=== PATIENT | male | born 1965 | race Caucasian/White ===

== ENCOUNTER 2016-08-21 19:06 | Emergency (ER) | payer OTHER ==
[2016-08-21] MEDS ORDERED: DIPH,PERTUSS(ACELL),TET VAC/PF 0.5 ML DISP.SYRIN IM ONE (19:16)
--- NOTE | 2016-08-21 19:23 | ED Physician Documentation ---
General Adult - HISTORIAN Historian: patient - HPI Stated Complaint: lac right leg Chief Complaint: Laceration/Recheck/Suture Additional Information: Mowing grass and something cut right leg. Unknown object. Last tetanus unknown. Stopped by [facility] and told to drive/come to ER. Onset: minutes (1800) - ROS CONST: no problems - PAST HX Past History: hypertension, other (IDDM, HLD, ) Allergies/Adverse Reactions: Allergies Allergy/AdvReac Type Severity Reaction Status Date / Time No Allergy Information Allergy Unverified 08/21/16 19:42 Available - SOCIAL HX Smoking History: cigarettes - FAMILY HX Family History: No - VITAL SIGNS Vital Signs: Vital Signs Temp Pulse Resp BP Pulse Ox 80 18 192/91 96 08/21/16 19:09 08/21/16 19:09 08/21/16 19:09 08/21/16 19:09 - REVIEWED ASSESSMENTS Nursing Assessment Reviewed: Yes Vitals Reviewed: Yes Progress - Progress Progress: Right lower leg immediately re-dressed with pressure dressing and elevated on pillow. 3 views of the right lower extremity Clinical history: Concern for foreign body Findings: No fracture dislocation is identified. No concerning radiopaque foreign bodies are identified. Small subcutaneous calcifications are seen along the anterior subcutaneous fat. Impression: Negative Electronically signed on Aug 21, 2016 8:05:19 PM CDT by: Kp Ramos Not repaired here 2/2 concern for development of compartment syndrome. 2022, Accepted for transfer to [facility] [place] ER per Dr. Simon, for "questionable arterial bleed." ED Results Lab/Radiology - Lab Results Lab Results: Lab Results 08/21/16 08/21/16 19:48 19:48 WBC 11.90 K/ul K/ul (4.00-12.00) RBC 5.37 M/ul H M/ul (3.90-5.20) Hgb 15.3 g/dL g/dL (12.0-18.0) Hct 44.5 % % (37.0-53.0) MCV 82.9 fl fl (80.0-100.0) MCH 28.5 pg pg (28.0-34.0) MCHC 34.4 g/dL g/dL (30.0-36.0) RDW 12.2 % % (11.3-14.3) Plt Count 345 K/mm3 K/mm3 (130-400) Neut % (Auto) 52.3 % % (39.0-79.0) Lymph % (Auto) 38.3 % % (16.0-50.0) [place] % (Auto) 5.8 % % (0.0-11.0) Eos % (Auto) 1.6 % % (0.0-6.8) Baso % (Auto) 0.5 (0.0-1.5) Neut # 6.2 # k/uL # k/uL (1.4-7.7) Lymph # 4.6 # k/uL H # k/uL (0.6-4.0) [place] # 0.7 # k/uL # k/uL (0.0-0.9) Eos # 0.2 # k/uL # k/uL (0.0-0.6) Baso # 0.1 # k/uL # k/uL (0.0-0.5) Reactive Lymphs % 1.4 % % (0.0-5.0) Reactive Lymphs # 0.2 # k/uL # k/uL (0.0-0.8) Sodium 135 mmol/L L mmol/L (136-145) Potassium 3.7 mmol/L mmol/L (3.5-5.0) Chloride 98 mmol/L mmol/L (98-110) Carbon Dioxide 31 mmol/L mmol/L (20-32) BUN 32 mg/dL H mg/dL (10-26) Creatinine 1.9 mg/dL H mg/dL (0.4-1.5) Estimated Creat Clear 68 Est GFR ( Amer) 48 L (60 - ) Est GFR (Non-Af Amer) 40 L (60 - ) Glucose 230 mg/dL H mg/dL (70-99) Calcium 9.7 mg/dL mg/dL (8.5-10.5) Total Bilirubin 0.4 mg/dL mg/dL (0.2-1.2) AST 18 U/L U/L (0-41) ALT 17 U/L U/L (0-45) Alkaline Phosphatase 104 U/L U/L (46-116) Total Protein 7.9 g/dL g/dL (6.0-8.5) Albumin 4.6 g/dL g/dL (3.0-5.5) - Orders Orders: ED Orders Category Date Time Status Place Saline Lock/IV Now Care 08/21/16 19:16 Active TIBIA & FIBULA 2 VIEW [RAD] Stat Exams 08/21/16 Taken CBC/PLATELET/DIFF Routine Lab 08/21/16 19:48 Completed CMP Routine Lab 08/21/16 19:48 Completed Chem Sticks Med 08/21/16 20:00 Ordered 1 each MC CHEMQ Diph,Pertuss(Acell),Tet Vac/Pf [Adacel] Med 08/21/16 19:16 Discontinued 0.5 ml IM .ONCE ONE General Adult Physical Exam - PHYSICAL EXAM GENERAL APPEARANCE: moderate distress EENT: eye inspection normal, ENT inspection normal NECK: normal inspection, supple RESPIRATORY: no resp distress, breath sounds normal (decreased lower lobes) CVS: reg rate & rhythm, heart sounds normal, no murmur ABDOMEN: normal bowel sounds RECTAL: deferred BACK: normal inspection, no CVA tenderness SKIN: warm/dry, normal color, other (7-8 cm linear lac lateral mid right lower leg with arterial bleed if pressure dressings removed) EXTREMITIES: other (right latera lcalf wqith 7-8 cm lanear lac, arterial bleed plus oozing. ) NEURO: CN's nml as tested, motor nml, sensation nml Discharge Clincal Impression: laceration right leg Condition: Fair Disposition: 02 XFER SHT-TRM HOSP Decision to Admit: NO Decision Time: 20:23
[2016-08-21 19:55] LABS: BASOPHILS % 0.5 (0.0-1.5); EOSINOPHILS % 1.6 % (0.0-6.8); MEAN CORPUSCULAR HEMOGLOBIN 28.5 pg (28.0-34.0); MEAN CORPUSCULAR VOLUME 82.9 fl (80.0-100.0); MONOCYTES % 5.8 % (0.0-11.0); NEUTROPHILS # 6.2 # k/uL (1.4-7.7)
[2016-08-21 21:47] VITALS: BP 163/85
--- NOTE | 2016-08-22 06:16 | Diagnostic Imaging Report ---
NANDO CHOUDHURY [facility] [address] [facility] [address] [address] Report Submission Date: Aug 21, 2016 8:05:19 PM CDT Patient Study Name: EFRA RIDER Date: Aug 21, 2016 7:29:36 PM CDT Modality Type: CR Gender: M Description: LOWER EXTREMITY : 61 Institution: [facility] Physician: NANDO CHOUDHURY - KACIE 3 views of the right lower extremity Clinical history: Concern for foreign body Findings: No fracture dislocation is identified. No concerning radiopaque foreign bodies are identified. Small subcutaneous calcifications are seen along the anterior subcutaneous fat. Impression: Negative Electronically signed on Aug 21, 2016 8:05:19 PM CDT by: Kp OLIVIER
== END 2016-08-21 20:50 | disposition short-term general hospital (02) ==
LOC: ED 19:06
DX: S81.811A Laceration without foreign body, right lower leg, initial encounter (principal); W31.89XA Contact with other specified machinery, initial encounter; Y93.9 Activity, unspecified; Y99.9 Unspecified external cause status
CPT/HCPCS: 73590; 80053; 85025; 90471; 90715; 99284; S1016